=== PATIENT | male | born 1960 | race Caucasian/White ===

== ENCOUNTER → 2017-08-18 | Day surgery (SDC) | payer OTHER ==
[~2017-08-18] VITALS: Ht 177.8 cm; Wt 86.6 kg
--- NOTE | 2017-08-18 11:14 | Operative Report ---
Operative/Inv Procedure Report Surgery Date: 08/18/17 Name of Procedure: Laparoscopic bilateral inguinal hernia. Pre-Operative Diagnosis: Bilateral inguinal hernia Post-Operative Diagnosis: Same Estimated Blood Loss: scant Surgeon/Millwright Instructor: Seth DURÁN,Gamal Higginbotham/Olga FERNANDEZ Anesthesia: general endotracheal tube Implants: Parietex mesh Operative/Procedure Note Note: After consent patient is brought to the operating room laid supine. General anesthesia was obtained and the abdomen was prepped and draped. Skin was anesthetized with local anesthesia and a transverse infraumbilical incision made sharply. We identified the rectus fascia and incised transversely. Stay sutures were placed. Rectus muscle was retracted laterally and a dissecting balloon placed posterior to it. It was inflated under direct vision the camera and replaced with a blunt Dumont port. Gas was instilled. 2, 5 mm ports were placed in the infraumbilical midline after local anesthesia was instilled and under direct vision and camera. Began our dissection at the pubis and delineated the symphysis. Willard's ligament was identified and cleared on the left side. Then dissected laterally and developed the iliopubic tract. There is a very large incarcerated indirect hernia. The sac was peeled off the cord structures with blunt and sharp dissection. There was a large cord lipoma which was delivered and reflected medially. The cord structures were circumferentially dissected. Once the dissection was completed a left -sided piece of Parietex mesh was placed in the cavity. It was placed around the cord structures re-create the internal ring and cover the femoral and direct spaces as well. It was tacked medially to keep it in anatomic position over then turned attention to the contralateral side. In a similar fashion coopers ligament and iliopubic tract were dissected. Cord structures are circumferentially dissected. There was a large indirect cord lipoma which was dissected free on the cavity and reflected medially. Mesh was then placed in a similar fashion. A tear in the peritoneum was closed with Endoloop Vicryl. Gas was allowed to escape on maintaining proper orientation of the mesh. The fascia was closed with 0 Vicryl suture. Skin incisions closed with 4-0 Vicryl. Steri- Strips and sterile dressing applied. Sponge and needle counts are correct. Findings: Bilateral indirect CC: Lisa DURÁN,Harshil
== END ==
LOC: STS 02:19
DX: K40.20 Bilateral inguinal hernia, without obstruction or gangrene, not specified as recurrent (principal); R39.198 Other difficulties with micturition; M16.12 Unilateral primary osteoarthritis, left hip
CPT/HCPCS: C1781; J0131; J0690; J1100; J2250; J2405